=== PATIENT | female | born 1985 | race Hispanic/Latino ===

== ENCOUNTER 2017-08-31 18:15 | Inpatient (IN) | payer SELFPAY ==
[~2017-08-31] VITALS: Ht 154.9 cm; Wt 59.6 kg
[2017-08-31] MEDS ORDERED: SODIUM CHLORIDE 0.9% 1000ML 1,000 ML IV ONE (18:43)
[2017-08-31] MEDS ORDERED: ACETAMINOPHEN EXTRA STRENGTH 500 MG TABLET ONE (18:43)
[2017-08-31 18:46] LABS: BASOPHILS % (AUTO) 0.3 % (0.0-5.0); EOSINOPHILS % (AUTO) 0.1 % (0.0-8.0); HEMATOCRIT 36.8 % (36-48); LYMPHOCYTES % (AUTO) 10.2 % (21.0-51.0); MEAN CORPUSCULAR HEMOGLOBIN 28.2 pg (27.0-33.0); MEAN CORPUSCULAR HGB CONC 33.5 g/dL (32.0-36.0); MEAN CORPUSCULAR VOLUME 84.2 fL (79-99); MONOCYTES % (AUTO) 10.6 % (3.0-13.0); NEUTROPHILS % (AUTO) 78.8 % (40.0-77.0); PLATELET COUNT (AUTO) 215 K/uL (130-400); RED BLOOD CELL COUNT(AUTO) 4.37 MIL/uL (4.00-5.50); RED CELL DISTRIBUTION WIDTH 13.2 % (11.0-15.5); WHITE BLOOD COUNT (AUTO) 13.4 K/uL (4.8-10.8)
[2017-08-31 18:55] LABS: APPEARANCE,URINE Cloudy (CLEAR); BILIRUBIN,URINE Negative (NEGATIVE); COLOR,URINE Yellow (YELLOW); GLUCOSE, URINE (UA) Negative (NEGATIVE); KETONES,URINE >=80 mg/dL (NEGATIVE); LEUKOCYTE ESTERASE ,URINE Moderate (NEGATIVE); NITRATE,URINE Positive (NEGATIVE); OCCULT BLOOD,URINE Large (NEGATIVE); PH,URINE 6.5 (5.0-8.0); PROTEIN,URINE 300 (NEGATIVE)
[2017-08-31 18:57] LABS: POTASSIUM 3.6 mmol/L (3.5-5.1)
[2017-08-31 19:01] LABS: ALBUMIN 3.5 g/dL (3.5-5.0); BILIRUBIN,TOTAL 0.7 mg/dL (0.2-1.0); TOTAL PROTEIN, SERUM 7.8 g/dL (6.0-8.3)
[2017-08-31 19:07] LABS: HCG,QUAL RESULT NEGATIVE (NEGATIVE)
[2017-08-31] MEDS ORDERED: IOPAMIDOL-370 75 ML VIAL IV ONE (19:28)
[2017-08-31 19:40] LABS: WBC,URINE 26-50 /HPF (0-1)
[2017-08-31 19:41] LABS: BACTERIA,URINE Few /HPF (None Seen); MUCUS,URINE Few LPF (None Seen); SQUAMOUS EPITHELIAL CELL,UR Moderate /LPF (0-2)
[2017-08-31] MEDS ORDERED: CEFTRIAXONE SODIUM 2 GM VIAL ONE (19:55)
[2017-08-31] MEDS ORDERED: KETOROLAC TROMETHAMINE 15MG/ML ONE (20:49)
[2017-09-01 01:05] VITALS: BP 93/61
[2017-09-01] MEDS ORDERED: SODIUM CHLORIDE 0.9% 1000ML 1,000 ML IV ONE (01:29)
[2017-09-01] MEDS: SODIUM CHLORIDE 0.9% 1000ML 1,000 ML IV SCH ×3 (03:49→23:39)
[2017-09-01 04:00] VITALS: BP 107/69
[2017-09-01] MEDS ORDERED: MORPHINE SULFATE 2 MG/ML 1ML SYG IV PRN (04:00)
[2017-09-01] MEDS ORDERED: ONDANSETRON HCL 4 MG/2 ML VIAL IV PRN (04:00)
[2017-09-01] MEDS ORDERED: HYDRALAZINE HCL 20 MG/ML VIAL IV PRN (04:00)
[2017-09-01 05:56] LABS: BASOPHILS % (AUTO) 0.2 % (0.0-5.0); EOSINOPHILS % (AUTO) 0.2 % (0.0-8.0); HEMATOCRIT 34.7 % (36-48); LYMPHOCYTES % (AUTO) 7.2 % (21.0-51.0); MEAN CORPUSCULAR HEMOGLOBIN 29.5 pg (27.0-33.0); MEAN CORPUSCULAR HGB CONC 34.7 g/dL (32.0-36.0); MEAN CORPUSCULAR VOLUME 85.1 fL (79-99); MONOCYTES % (AUTO) 11.3 % (3.0-13.0); NEUTROPHILS % (AUTO) 81.1 % (40.0-77.0); PLATELET COUNT (AUTO) 178 K/uL (130-400); RED BLOOD CELL COUNT(AUTO) 4.07 MIL/uL (4.00-5.50); RED CELL DISTRIBUTION WIDTH 13.5 % (11.0-15.5); WHITE BLOOD COUNT (AUTO) 12.6 K/uL (4.8-10.8)
[2017-09-01 06:06] LABS: CREATININE 0.9 mg/dL (0.5-1.5); POTASSIUM 3.9 mmol/L (3.5-5.1)
[2017-09-01 07:30] VITALS: BP 110/73
[2017-09-01] MEDS ORDERED: CEFTRIAXONE 1GM/D5W 50ML 50 ML IV SCH (09:00)
[2017-09-01] MEDS: CEFTRIAXONE SODIUM 1 GM IVP SCH ×2 (09:07→19:48)
[2017-09-01] MEDS: FAMOTIDINE 20MG TAB 20 MG TAB PO SCH ×2 (09:07→19:47)
[2017-09-01] MEDS: ACETAMINOPHEN 325 MG TAB PO PRN ×2 (09:08→14:36)
[2017-09-01] MEDS ORDERED: MORPHINE SULFATE 4 MG/1ML SYG ONE (09:11)
[2017-09-01 11:00] VITALS: BP 97/56
[2017-09-01 16:00] VITALS: BP 110/68
[2017-09-01 20:19] VITALS: BP 104/62
[2017-09-02 00:02] VITALS: BP 98/65
[2017-09-02] MEDS: ACETAMINOPHEN 325 MG TAB PO PRN (04:20)
[2017-09-02 04:31] VITALS: BP 99/70
[2017-09-02 07:44] VITALS: BP 99/69
[2017-09-02] MEDS: CEFTRIAXONE SODIUM 1 GM IVP SCH ×2 (07:59→19:25)
[2017-09-02] MEDS: FAMOTIDINE 20MG TAB 20 MG TAB PO SCH ×2 (07:59→19:25)
[2017-09-02 12:00] VITALS: BP 109/68
[2017-09-02] MEDS: SODIUM CHLORIDE 0.9% 1000ML 1,000 ML IV SCH ×2 (13:47→19:56)
[2017-09-02 16:00] VITALS: BP 107/63
[2017-09-02 20:24] VITALS: BP 113/67
[2017-09-03 00:20] VITALS: BP 105/64
[2017-09-03 04:00] VITALS: BP 100/66
[2017-09-03] MEDS: SODIUM CHLORIDE 0.9% 1000ML 1,000 ML IV SCH ×3 (06:28→20:54)
[2017-09-03 07:51] VITALS: BP 113/64
[2017-09-03] MEDS: FAMOTIDINE 20MG TAB 20 MG TAB PO SCH ×2 (08:53→20:22)
[2017-09-03] MEDS: CEFTRIAXONE SODIUM 1 GM IVP SCH ×2 (08:53→20:21)
[2017-09-03] MEDS: MAGNESIUM HYDROXIDE 30 ML/UDCUP PO SCH (08:54)
[2017-09-03 12:00] VITALS: BP 122/78
[2017-09-03 15:42] VITALS: BP 118/76
[2017-09-03 20:05] VITALS: BP 106/61
[2017-09-04] VITALS: BP 108/71
[2017-09-04] MEDS: SODIUM CHLORIDE 0.9% 1000ML 1,000 ML IV SCH ×3 (01:49→12:26)
[2017-09-04 04:27] VITALS: BP 115/72
[2017-09-04 08:00] VITALS: BP 102/66
[2017-09-04] MEDS: FAMOTIDINE 20MG TAB 20 MG TAB PO SCH ×2 (09:25→19:52)
[2017-09-04] MEDS: MAGNESIUM HYDROXIDE 30 ML/UDCUP PO SCH (09:25)
[2017-09-04] MEDS: CEFTRIAXONE SODIUM 1 GM IVP SCH ×2 (09:25→19:52)
[2017-09-04 11:54] VITALS: BP 119/84
[2017-09-04 16:00] VITALS: BP 128/75
[2017-09-04 20:30] VITALS: BP 115/75
[2017-09-05 00:08] VITALS: BP 108/67
[2017-09-05 04:00] VITALS: BP 102/68
[2017-09-05] MEDS: SODIUM CHLORIDE 0.9% 1000ML 1,000 ML IV SCH (06:34)
[2017-09-05 08:00] VITALS: BP 109/76
[2017-09-05] MEDS: FAMOTIDINE 20MG TAB 20 MG TAB PO SCH (08:48)
[2017-09-05] MEDS: CEFTRIAXONE SODIUM 1 GM IVP SCH (08:48)
[2017-09-05] MEDS: MAGNESIUM HYDROXIDE 30 ML/UDCUP PO SCH (08:48)
[2017-09-05] MEDS ORDERED: CEFD300C3 PO (10:35)
== END 2017-09-05 12:23 | disposition home or self-care (01) | DRG 872 ==
LOC: EDH 18:15 → EDHIP 18:16 → 4AH 09-01 00:13 → 4BH 09-03 12:40
PROVIDERS: ADMIT Family Medicine; ATTEND Family Medicine
DX: A41.9 Sepsis, unspecified organism (principal); Q61.3 Polycystic kidney, unspecified; K76.89 Other specified diseases of liver; N10 Acute pyelonephritis; N39.0 Urinary tract infection, site not specified
CPT/HCPCS: 36415; 74177; 76705; 80048; 80053; 81001; 81025; 83605; 83690; 85025; 87040; 87088; 87186; 87804; A4218; J0696; J1885; J2270; J7030; Q9967